=== PATIENT | male | born 1995 | race Caucasian/White ===

== ENCOUNTER → 2017-09-21 | Outpatient (CLI) | payer OTHER ==
[~2017-09-21] MED LIST: CHOL10002 PO; GABA300 PO; GAVILAX17 GM PO; HYDHCL25 PO; LEVO750 PO; METO10 PO; ONDA4ODT MM; PANT40 PO; SERT25; SERT25 PO; SUMA25 PO; Tylenol325 MG PO; Zofran4 MG PO
[2017-09-21 15:21] LABS: BASOPHILS ABSOLUTE AUTO 0.06 K/mm3 (0.00-0.23); BASOPHILS PERCENT AUTO 1 % (0-2); EOSINOPHILS ABSOLUTE AUTO 0.42 K/mm3 (0.00-0.68); EOSINOPHILS PERCENT AUTO 5 % (0-6); Hematocrit 42.7 % (37.0-53.0); Hemoglobin 14.6 g/dL (13.5-17.5); IMMATURE GRAN ABSOLUTE AUTO 0.04 K/mm3 (0.00-0.10); IMMATURE GRAN PERCENT AUTO 1 % (0-1); LYMPHOCYTES ABSOLUTE AUTO 1.32 K/mm3 (0.84-5.20); LYMPHOCYTES PERCENT AUTO 17 % (21-46); MONOCYTES ABSOLUTE AUTO 0.78 K/mm3 (0.16-1.47); MONOCYTES PERCENT AUTO 10 % (4-13); Mean Corpuscular HGB Conc 34.2 g/dL (31.5-36.5); Mean Corpuscular Volume 85 fL (80-100); Mean Platelet Volume 9.9 fL (9.1-12.4); NEUTROPHILS PERCENT AUTO 66 % (41-73); Platelet Count 405 K/mm3 (150-400); RDW Coefficient Variation 13.1 % (11.7-14.2); RDW Standard Deviation 39.8 fL (35.1-46.3); Red Blood Cell Count 5.04 M/mm3 (4.30-5.90); White Blood Cell Count 7.72 K/mm3 (4.00-11.30)
== END | disposition home or self-care (01) ==
LOC: LAB EV 15:18
PROVIDERS: Family Medicine
DX: K29.70 Gastritis, unspecified, without bleeding (principal)
CPT/HCPCS: 85025

== ENCOUNTER → 2017-12-20 | Outpatient (CLI) | payer OTHER ==
[~2017-12-20] MED LIST changes: -CHOL10002 PO; +GABA300; -GABA300 PO; -GAVILAX17 GM PO; -LEVO750 PO; -METO10 PO; -ONDA4ODT MM; -PANT40 PO; -SERT25 PO; -SUMA25 PO; -Tylenol325 MG PO
[2017-12-20 12:16] LABS: BASOPHILS ABSOLUTE AUTO 0.08 K/mm3 (0.00-0.23); BASOPHILS PERCENT AUTO 1 % (0-2); EOSINOPHILS ABSOLUTE AUTO 0.38 K/mm3 (0.00-0.68); EOSINOPHILS PERCENT AUTO 5 % (0-6); Hematocrit 40.9 % (37.0-53.0); Hemoglobin 14.3 g/dL (13.5-17.5); IMMATURE GRAN ABSOLUTE AUTO 0.02 K/mm3 (0.00-0.10); IMMATURE GRAN PERCENT AUTO 0 % (0-1); LYMPHOCYTES ABSOLUTE AUTO 1.29 K/mm3 (0.84-5.20); LYMPHOCYTES PERCENT AUTO 17 % (21-46); MONOCYTES ABSOLUTE AUTO 0.67 K/mm3 (0.16-1.47); MONOCYTES PERCENT AUTO 9 % (4-13); Mean Corpuscular HGB 28.9 pg (26.0-34.0); Mean Corpuscular Volume 83 fL (80-100); Mean Platelet Volume 10.2 fL (9.1-12.4); NEUTROPHILS ABSOLUTE AUTO 5.07 K/mm3 (1.96-9.15); NEUTROPHILS PERCENT AUTO 67 % (41-73); Platelet Count 434 K/mm3 (150-400); RDW Coefficient Variation 13.4 % (11.7-14.2); RDW Standard Deviation 39.7 fL (35.1-46.3); Red Blood Cell Count 4.95 M/mm3 (4.30-5.90); White Blood Cell Count 7.51 K/mm3 (4.00-11.30)
[2017-12-20 12:36] LABS: Alanine Aminotransfer (ALT/SGP 65 U/L (12-78); Albumin, Blood 3.7 g/dL (3.4-5.0); Albumin/Globulin Ratio 0.7 (0.8-1.8); Alk Phos 47 U/L (40-126); Anion Gap 11 mmol/L (6-16); Aspartate Aminotrans (AST/SGOT 46 U/L (12-37); Bilirubin, Total 1.3 mg/dL (0.1-1.0); Blood Urea Nitrogen 18 mg/dL (8-24); Bun/Creatinine Ratio 13.6 (12.0-20.0); CO2, Blood 26 mmol/L (21-32); Calcium, Blood 11.2 mg/dL (8.5-10.1); Chloride, Blood 100 mmol/L (98-108); Creatinine, Blood 1.32 mg/dL (0.60-1.20); Globulin, Blood 5.4 g/dL (2.2-4.0); Glomerular Filtration Rate >60 (60-); Glucose, Blood 93 mg/dL (70-99); Potassium, Blood 4.6 mmol/L (3.5-5.5); Sodium, Blood 137 mmol/L (136-145); Total Protein, Blood 9.1 g/dL (6.4-8.2)
== END | disposition home or self-care (01) ==
LOC: LAB EV 12:12 → LAB SHORT 12:12
PROVIDERS: Family Medicine
DX: K29.70 Gastritis, unspecified, without bleeding (principal)
CPT/HCPCS: 80053; 85025

== ENCOUNTER 2018-04-15 11:16 | Inpatient (IN) | payer OTHER ==
[~2018-04-15] VITALS: Ht 182.9 cm; Wt 109.1 kg
[~2018-04-15 11:16] MED LIST changes: -GABA300; +GABA300 PO
[2018-04-15 12:31] LABS: BASOPHILS ABSOLUTE AUTO 0.13 K/mm3 (0.00-0.23); BASOPHILS PERCENT AUTO 1 % (0-2); EOSINOPHILS ABSOLUTE AUTO 1.01 K/mm3 (0.00-0.68); EOSINOPHILS PERCENT AUTO 8 % (0-6); Hematocrit 41.1 % (37.0-53.0); IMMATURE GRAN ABSOLUTE AUTO 0.04 K/mm3 (0.00-0.10); IMMATURE GRAN PERCENT AUTO 0 % (0-1); LYMPHOCYTES ABSOLUTE AUTO 2.06 K/mm3 (0.84-5.20); LYMPHOCYTES PERCENT AUTO 15 % (21-46); MONOCYTES ABSOLUTE AUTO 1.32 K/mm3 (0.16-1.47); MONOCYTES PERCENT AUTO 10 % (4-13); Mean Corpuscular HGB 29.1 pg (26.0-34.0); Mean Corpuscular HGB Conc 34.1 g/dL (31.5-36.5); Mean Corpuscular Volume 85 fL (80-100); Mean Platelet Volume 10.3 fL (9.1-12.4); NEUTROPHILS PERCENT AUTO 66 % (41-73); Platelet Count 426 K/mm3 (150-400); RDW Coefficient Variation 13.1 % (11.7-14.2); RDW Standard Deviation 40.7 fL (35.1-46.3); Red Blood Cell Count 4.81 M/mm3 (4.30-5.90); White Blood Cell Count 13.36 K/mm3 (4.00-11.30)
[2018-04-15 12:44] LABS: Alanine Aminotransfer (ALT/SGP 40 U/L (12-78); Albumin, Blood 3.6 g/dL (3.4-5.0); Albumin/Globulin Ratio 0.7 (0.8-1.8); Alk Phos 41 U/L (50-136); Anion Gap 9 mmol/L (6-16); Aspartate Aminotrans (AST/SGOT 26 U/L (12-37); Bilirubin, Total 1.3 mg/dL (0.1-1.0); Blood Urea Nitrogen 17 mg/dL (8-24); Bun/Creatinine Ratio 12.1 (12.0-20.0); CO2, Blood 25 mmol/L (21-32); Calcium, Blood 14.7 mg/dL (8.5-10.1); Chloride, Blood 102 mmol/L (98-108); Globulin, Blood 5.5 g/dL (2.2-4.0); Glomerular Filtration Rate >60 (60-); Glucose, Blood 82 mg/dL (70-99); Potassium, Blood 3.4 mmol/L (3.5-5.5); Sodium, Blood 136 mmol/L (136-145); Total Protein, Blood 9.1 g/dL (6.4-8.2)
[2018-04-15 14:51] LABS: Magnesium, Blood 1.3 mg/dL (1.6-2.4); Phosphorus, Blood 1.9 mg/dL (2.5-4.9)
[2018-04-16 04:49] LABS: BASOPHILS ABSOLUTE AUTO 0.13 K/mm3 (0.00-0.23); BASOPHILS PERCENT AUTO 1 % (0-2); EOSINOPHILS ABSOLUTE AUTO 1.12 K/mm3 (0.00-0.68); EOSINOPHILS PERCENT AUTO 9 % (0-6); Hematocrit 36.3 % (37.0-53.0); Hemoglobin 12.5 g/dL (13.5-17.5); IMMATURE GRAN ABSOLUTE AUTO 0.04 K/mm3 (0.00-0.10); IMMATURE GRAN PERCENT AUTO 0 % (0-1); LYMPHOCYTES PERCENT AUTO 16 % (21-46); MONOCYTES ABSOLUTE AUTO 1.27 K/mm3 (0.16-1.47); MONOCYTES PERCENT AUTO 11 % (4-13); Mean Corpuscular HGB 29.3 pg (26.0-34.0); Mean Corpuscular HGB Conc 34.4 g/dL (31.5-36.5); Mean Corpuscular Volume 85 fL (80-100); Mean Platelet Volume 10.7 fL (9.1-12.4); NEUTROPHILS ABSOLUTE AUTO 7.66 K/mm3 (1.96-9.15); NEUTROPHILS PERCENT AUTO 63 % (41-73); Platelet Count 392 K/mm3 (150-400); RDW Coefficient Variation 13.3 % (11.7-14.2); RDW Standard Deviation 41.2 fL (35.1-46.3); Red Blood Cell Count 4.27 M/mm3 (4.30-5.90); White Blood Cell Count 12.12 K/mm3 (4.00-11.30)
[2018-04-16 05:07] LABS: Magnesium, Blood 1.5 mg/dL (1.6-2.4)
[2018-04-16 05:10] LABS: Anion Gap 8 mmol/L (6-16); Blood Urea Nitrogen 18 mg/dL (8-24); CO2, Blood 27 mmol/L (21-32); Calcium, Blood 13.3 mg/dL (8.5-10.1); Chloride, Blood 104 mmol/L (98-108); Creatinine, Blood 1.38 mg/dL (0.60-1.20); Glomerular Filtration Rate >60 (60-); Glucose, Blood 123 mg/dL (70-99); Phosphorus, Blood 3.9 mg/dL (2.5-4.9); Potassium, Blood 3.5 mmol/L (3.5-5.5); Sodium, Blood 139 mmol/L (136-145)
[2018-04-17 05:40] LABS: International Normalized Ratio 1.14; Prothrombin Time Results 11.7 Sec (9.7-11.5)
[2018-04-17 07:08] LABS: COMPLEMENT C3, SERUM 185 mg/dL (82-167); COMPLEMENT C4, SERUM 31 mg/dL (14-44)
[2018-04-17 08:05] LABS: BASOPHILS ABSOLUTE AUTO 0.08 K/mm3 (0.00-0.23); BASOPHILS PERCENT AUTO 1 % (0-2); EOSINOPHILS ABSOLUTE AUTO 0.59 K/mm3 (0.00-0.68); EOSINOPHILS PERCENT AUTO 5 % (0-6); Hematocrit 35.6 % (37.0-53.0); Hemoglobin 11.6 g/dL (13.5-17.5); IMMATURE GRAN ABSOLUTE AUTO 0.05 K/mm3 (0.00-0.10); IMMATURE GRAN PERCENT AUTO 0 % (0-1); LYMPHOCYTES ABSOLUTE AUTO 1.26 K/mm3 (0.84-5.20); LYMPHOCYTES PERCENT AUTO 10 % (21-46); MONOCYTES ABSOLUTE AUTO 0.55 K/mm3 (0.16-1.47); MONOCYTES PERCENT AUTO 5 % (4-13); Mean Corpuscular HGB 28.4 pg (26.0-34.0); Mean Corpuscular HGB Conc 32.6 g/dL (31.5-36.5); Mean Corpuscular Volume 87 fL (80-100); Mean Platelet Volume 11.2 fL (9.1-12.4); NEUTROPHILS ABSOLUTE AUTO 9.66 K/mm3 (1.96-9.15); NEUTROPHILS PERCENT AUTO 79 % (41-73); Platelet Count 333 K/mm3 (150-400); RDW Coefficient Variation 13.2 % (11.7-14.2); RDW Standard Deviation 41.6 fL (35.1-46.3); Red Blood Cell Count 4.09 M/mm3 (4.30-5.90); White Blood Cell Count 12.19 K/mm3 (4.00-11.30)
[2018-04-17 08:15] LABS: Albumin, Blood 2.8 g/dL (3.4-5.0); Anion Gap 8 mmol/L (6-16); Blood Urea Nitrogen 19 mg/dL (8-24); Bun/Creatinine Ratio 12.3 (12.0-20.0); CO2, Blood 26 mmol/L (21-32); Calcium, Blood 11.5 mg/dL (8.5-10.1); Chloride, Blood 102 mmol/L (98-108); Creatinine, Blood 1.54 mg/dL (0.60-1.20); Glomerular Filtration Rate >60 (60-); Glucose, Blood 91 mg/dL (70-99); Magnesium, Blood 1.2 mg/dL (1.6-2.4); Phosphorus, Blood 1.6 mg/dL (2.5-4.9); Potassium, Blood 3.9 mmol/L (3.5-5.5); Sodium, Blood 136 mmol/L (136-145)
[2018-04-17 12:33] LABS: Source, Urine Clean Catch
[2018-04-17 12:49] LABS: Bilirubin, Urine Neg (Neg); Blood, Urine Neg (Neg); Glucose Qualitative, Urine Neg (Neg); Ketones, Urine Neg (Neg); Leukocyte Esterase, Urine Neg (Neg); Nitrite, Urine Neg (Neg); Protein, Urine Neg (Neg); Urobilinogen, Urine NORM (Normal); pH, Urine 6.5 (5.0-8.0)
[2018-04-17 13:05] LABS: Appearance, Urine Clear (Clear); Color, Urine Pale Yellow (P-Yellow)
[2018-04-18 04:56] LABS: BASOPHILS ABSOLUTE AUTO 0.09 K/mm3 (0.00-0.23); BASOPHILS PERCENT AUTO 1 % (0-2); EOSINOPHILS ABSOLUTE AUTO 0.93 K/mm3 (0.00-0.68); EOSINOPHILS PERCENT AUTO 9 % (0-6); Hematocrit 36.2 % (37.0-53.0); IMMATURE GRAN ABSOLUTE AUTO 0.06 K/mm3 (0.00-0.10); IMMATURE GRAN PERCENT AUTO 1 % (0-1); LYMPHOCYTES ABSOLUTE AUTO 1.54 K/mm3 (0.84-5.20); LYMPHOCYTES PERCENT AUTO 15 % (21-46); MONOCYTES ABSOLUTE AUTO 0.71 K/mm3 (0.16-1.47); MONOCYTES PERCENT AUTO 7 % (4-13); Mean Corpuscular HGB 28.7 pg (26.0-34.0); Mean Corpuscular HGB Conc 33.1 g/dL (31.5-36.5); Mean Corpuscular Volume 87 fL (80-100); Mean Platelet Volume 10.5 fL (9.1-12.4); NEUTROPHILS ABSOLUTE AUTO 7.06 K/mm3 (1.96-9.15); NEUTROPHILS PERCENT AUTO 68 % (41-73); Platelet Count 290 K/mm3 (150-400); RDW Standard Deviation 41.1 fL (35.1-46.3); Red Blood Cell Count 4.18 M/mm3 (4.30-5.90); White Blood Cell Count 10.39 K/mm3 (4.00-11.30)
[2018-04-18 05:14] LABS: Magnesium, Blood 1.4 mg/dL (1.6-2.4)
[2018-04-18 05:34] LABS: Albumin, Blood 2.6 g/dL (3.4-5.0); Anion Gap 8 mmol/L (6-16); Blood Urea Nitrogen 19 mg/dL (8-24); Bun/Creatinine Ratio 13.2 (12.0-20.0); CO2, Blood 26 mmol/L (21-32); Chloride, Blood 102 mmol/L (98-108); Creatinine, Blood 1.44 mg/dL (0.60-1.20); Glomerular Filtration Rate >60 (60-); Glucose, Blood 76 mg/dL (70-99); Phosphorus, Blood 2.2 mg/dL (2.5-4.9); Potassium, Blood 3.8 mmol/L (3.5-5.5); Sodium, Blood 136 mmol/L (136-145)
[2018-04-18 05:51] LABS: Calcium, Blood 9.4 mg/dL (8.5-10.1)
[2018-04-18 05:52] LABS: HIV SCREEN 4TH GENERATION WRFX Non Reactive (Non Reactive)
[2018-04-19 06:20] LABS: Hematocrit 33.7 % (37.0-53.0); Hemoglobin 11.6 g/dL (13.5-17.5); Mean Corpuscular HGB 28.7 pg (26.0-34.0); Mean Corpuscular HGB Conc 34.4 g/dL (31.5-36.5); Mean Corpuscular Volume 83 fL (80-100); Mean Platelet Volume 10.4 fL (9.1-12.4); Platelet Count 314 K/mm3 (150-400); RDW Coefficient Variation 13.1 % (11.7-14.2); RDW Standard Deviation 39.8 fL (35.1-46.3); Red Blood Cell Count 4.04 M/mm3 (4.30-5.90); White Blood Cell Count 11.24 K/mm3 (4.00-11.30)
[2018-04-19 06:47] LABS: Albumin, Blood 2.7 g/dL (3.4-5.0); Anion Gap 7 mmol/L (6-16); Blood Urea Nitrogen 19 mg/dL (8-24); Bun/Creatinine Ratio 14.7 (12.0-20.0); CO2, Blood 25 mmol/L (21-32); Chloride, Blood 103 mmol/L (98-108); Creatinine, Blood 1.29 mg/dL (0.60-1.20); Glomerular Filtration Rate >60 (60-); Glucose, Blood 84 mg/dL (70-99); Magnesium, Blood 1.3 mg/dL (1.6-2.4); Phosphorus, Blood 1.6 mg/dL (2.5-4.9); Potassium, Blood 3.9 mmol/L (3.5-5.5); Sodium, Blood 135 mmol/L (136-145)
[2018-04-19 09:14] LABS: ANTI-DSDNA ANTIBODIES <1 IU/mL (0-9); RNP ANTIBODIES 0.2 AI (0.0-0.9); SJOGREN'S ANTI-SS-A <0.2 AI (0.0-0.9); SJOGREN'S ANTI-SS-B <0.2 AI (0.0-0.9); SMITH ANTIBODIES <0.2 AI (0.0-0.9)
[2018-04-19] MEDS ORDERED: LEVO750 PO (13:12)
[2018-04-19] MEDS ORDERED: Tylenol325 MG PO (13:12)
[2018-04-19] MEDS ORDERED: METO10 PO (13:13)
[2018-04-19] MEDS ORDERED: PANT40 PO (13:14)
[2018-04-19] MEDS ORDERED: GAVILAX17 GM PO (13:15)
[2018-04-19] MEDS ORDERED: SUMA25 PO (13:16)
[2018-04-19] MEDS ORDERED: ONDA4ODT MM (13:19)
[2018-04-19] MEDS ORDERED: CHOL10002 PO (13:19)
== END 2018-04-19 14:20 | disposition home or self-care (01) | DRG 815 ==
LOC: ER 11:16 → MEDS 16:41 → ER 16:41 → MEDS 18:39 → ER 04-16 16:00 → MEDS 04-16 16:05 → ER 04-16 16:05 → MEDS 04-16 16:10
PROVIDERS: Emergency Medicine; Internal Medicine; Internal Medicine Hematology & Oncology
PROC: 07DH3ZX Extraction of Right Inguinal Lymphatic, Percutaneous Approach, Diagnostic (ICD-10-PCS; principal; 2018-04-17)
DX: I88.1 Chronic lymphadenitis, except mesenteric (principal); N17.9 Acute kidney failure, unspecified; N39.0 Urinary tract infection, site not specified; F17.200 Nicotine dependence, unspecified, uncomplicated; E83.52 Hypercalcemia; E87.6 Hypokalemia; E83.42 Hypomagnesemia; E83.39 Other disorders of phosphorus metabolism; K21.0 Gastro-esophageal reflux disease with esophagitis; F90.9 Attention-deficit hyperactivity disorder, unspecified type; G43.909 Migraine, unspecified, not intractable, without status migrainosus; G40.909 Epilepsy, unspecified, not intractable, without status epilepticus; E66.9 Obesity, unspecified; Z68.32 Body mass index [BMI] 32.0-32.9, adult; F43.10 Post-traumatic stress disorder, unspecified; G47.00 Insomnia, unspecified; E86.0 Dehydration; K25.9 Gastric ulcer, unspecified as acute or chronic, without hemorrhage or perforation
CPT/HCPCS: 36415; 38505; 71046; 71250; 74176; 76942; 80048; 80053; 80069; 81003; 82306; 82330; 83690; 83735; 83970; 84100; 84145; 84439; 85025; 85027; 85610; 85730; 86160; 86225; 86235; 87389; 88305; 88312; 90686; 93005; 93010; 96361; 96374; 96375; 99285-25; C9113; J1940; J1956; J2405; J2765; J3475; J3480; J3489; J7030; J7050; J7060

== ENCOUNTER 2018-04-25 06:34 | Day surgery (SDC) | payer OTHER ==
[~2018-04-25] VITALS: Ht 182.9 cm; Wt 103.9 kg
[~2018-04-25 06:34] MED LIST changes: +CHOL10002 PO; +GAVILAX17 GM PO; +LEVO750 PO; +METO10 PO; +ONDA4ODT MM; +PANT40 PO; +SUMA25 PO; +Tylenol325 MG PO
[2018-04-25 11:17] LABS: Performing Lab SYMBIODX; Test Name FLOW CYTOMETRY
== END 2018-04-25 22:35 | disposition home or self-care (01) ==
LOC: ORSCMMR 06:34 → ORD 09:00 → ORSCMMR 09:30
PROVIDERS: Surgery
PROC: 07BJ0ZX Excision of Left Inguinal Lymphatic, Open Approach, Diagnostic (ICD-10-PCS; principal; 2018-04-25 08:00)
DX: I88.8 Other nonspecific lymphadenitis (principal); G40.909 Epilepsy, unspecified, not intractable, without status epilepticus; F43.10 Post-traumatic stress disorder, unspecified; Z79.899 Other long term (current) drug therapy
CPT/HCPCS: 88305; 88312; J0690; J2250; J3010; J7120

== ENCOUNTER 2018-10-18 22:17 | Emergency (ER) | payer OTHER ==
[~2018-10-18] VITALS: Ht 182.9 cm; Wt 115.7 kg
[~2018-10-18 22:17] MED LIST changes: +SERT25 PO
[2018-10-18] MEDS ORDERED: PRED20 PO (23:44)
== END 2018-10-18 23:40 | disposition home or self-care (01) ==
LOC: ER 22:17
DX: S91.114A Laceration without foreign body of right lesser toe(s) without damage to nail, initial encounter (principal); Z79.899 Other long term (current) drug therapy; W25.XXXA Contact with sharp glass, initial encounter
CPT/HCPCS: 12001; 90471; 90714; 99282-25

== ENCOUNTER 2019-05-15 19:47 | Emergency (ER) | payer OTHER ==
[~2019-05-15] VITALS: Ht 185.4 cm; Wt 104.3 kg
[~2019-05-15 19:47] MED LIST changes: +PRED20 PO
[2019-05-15 20:34] LABS: BASOPHILS ABSOLUTE AUTO 0.07 K/mm3 (0.00-0.23); BASOPHILS PERCENT AUTO 1 % (0-2); EOSINOPHILS ABSOLUTE AUTO 0.22 K/mm3 (0.00-0.68); EOSINOPHILS PERCENT AUTO 2 % (0-6); Hematocrit 39.6 % (37.0-53.0); Hemoglobin 13.4 g/dL (13.5-17.5); IMMATURE GRAN ABSOLUTE AUTO 0.03 K/mm3 (0.00-0.10); IMMATURE GRAN PERCENT AUTO 0 % (0-1); LYMPHOCYTES ABSOLUTE AUTO 1.48 K/mm3 (0.84-5.20); LYMPHOCYTES PERCENT AUTO 14 % (21-46); MONOCYTES ABSOLUTE AUTO 0.82 K/mm3 (0.16-1.47); MONOCYTES PERCENT AUTO 8 % (4-13); Mean Corpuscular HGB 29.8 pg (26.0-34.0); Mean Corpuscular HGB Conc 33.8 g/dL (31.5-36.5); Mean Corpuscular Volume 88 fL (80-100); Mean Platelet Volume 10.6 fL (9.1-12.4); NEUTROPHILS ABSOLUTE AUTO 7.92 K/mm3 (1.96-9.15); NEUTROPHILS PERCENT AUTO 75 % (41-73); Platelet Count 395 K/mm3 (150-400); RDW Coefficient Variation 13.1 % (11.7-14.2); RDW Standard Deviation 42.3 fL (35.1-46.3); Red Blood Cell Count 4.49 M/mm3 (4.30-5.90); White Blood Cell Count 10.54 K/mm3 (4.00-11.30)
[2019-05-15] MEDS ORDERED: ONDA4ODT SL (21:00)
[2019-05-15] MEDS ORDERED: AMIT25 PO (21:00)
[2019-05-15] MEDS ORDERED: METO10 PO (21:01)
[2019-05-15 21:17] LABS: Alanine Aminotransfer (ALT/SGP 39 U/L (12-78); Albumin, Blood 3.5 g/dL (3.4-5.0); Albumin/Globulin Ratio 0.8 (0.8-1.8); Alk Phos 34 U/L (50-136); Anion Gap 9 mmol/L (6-16); Aspartate Aminotrans (AST/SGOT 32 U/L (12-37); Bilirubin, Total 1.1 mg/dL (0.1-1.0); Blood Urea Nitrogen 11 mg/dL (8-24); Bun/Creatinine Ratio 12.6 (12.0-20.0); CO2, Blood 26 mmol/L (21-32); Calcium, Blood 9.8 mg/dL (8.5-10.1); Chloride, Blood 105 mmol/L (98-108); Creatinine, Blood 0.87 mg/dL (0.60-1.20); Globulin, Blood 4.3 g/dL (2.2-4.0); Glomerular Filtration Rate >60 (60-); Glucose, Blood 92 mg/dL (70-99); Magnesium, Blood 1.2 mg/dL (1.6-2.4); Phosphorus, Blood 3.2 mg/dL (2.5-4.9); Potassium, Blood 3.7 mmol/L (3.5-5.5); Sodium, Blood 140 mmol/L (136-145); Total Protein, Blood 7.8 g/dL (6.4-8.2)
[2019-05-15 23:06] LABS: International Normalized Ratio 1.02; Prothrombin Time Results 10.8 Sec (9.7-11.5)
== END 2019-05-15 23:49 | disposition home or self-care (01) ==
LOC: ER 19:47
PROVIDERS: Emergency Medicine; Physician Assistant
DX: R11.2 Nausea with vomiting, unspecified (principal); R51 Headache; G89.29 Other chronic pain; D86.9 Sarcoidosis, unspecified; Z91.14 Patient's other noncompliance with medication regimen; Z79.899 Other long term (current) drug therapy
CPT/HCPCS: 36415; 74177; 80053; 82272; 82330; 83735; 84100; 85025; 85610; 85730; 96361; 96374-59; 96375; 99285-25; J1100; J1200; J2405; J2765; J7030; Q9967

== ENCOUNTER → 2019-06-13 | Outpatient (CLI) | payer OTHER ==
[~2019-06-13] MED LIST changes: +AMIT25 PO; +BUDE6HFA INH; +INCRUSE ELLI62.5 MCG INH; +ONDA4ODT SL; +PROAIR DIGIHAL90 MCG INH
== END ==
LOC: PLD 07:27 → LAB SHORT 07:27
DX: L30.8 Other specified dermatitis (principal)
CPT/HCPCS: 88312

== ENCOUNTER 2019-09-28 10:56 | Emergency (ER) | payer OTHER ==
[~2019-09-28] VITALS: Ht 182.9 cm; Wt 108.9 kg
[2019-09-28 11:45] LABS: Influenza A Negative (NEGATIVE); Influenza B Negative (NEGATIVE)
[2019-09-28 12:07] LABS: BASOPHILS ABSOLUTE AUTO 0.07 K/mm3 (0.00-0.23); BASOPHILS PERCENT AUTO 1 % (0-2); EOSINOPHILS ABSOLUTE AUTO 0.37 K/mm3 (0.00-0.68); EOSINOPHILS PERCENT AUTO 4 % (0-6); Hematocrit 40.5 % (37.0-53.0); Hemoglobin 13.6 g/dL (13.5-17.5); IMMATURE GRAN ABSOLUTE AUTO 0.03 K/mm3 (0.00-0.10); IMMATURE GRAN PERCENT AUTO 0 % (0-1); LYMPHOCYTES ABSOLUTE AUTO 1.31 K/mm3 (0.84-5.20); LYMPHOCYTES PERCENT AUTO 14 % (21-46); MONOCYTES ABSOLUTE AUTO 0.98 K/mm3 (0.16-1.47); MONOCYTES PERCENT AUTO 11 % (4-13); Mean Corpuscular HGB 29.8 pg (26.0-34.0); Mean Corpuscular HGB Conc 33.6 g/dL (31.5-36.5); Mean Corpuscular Volume 89 fL (80-100); Mean Platelet Volume 10.2 fL (9.1-12.4); NEUTROPHILS ABSOLUTE AUTO 6.32 K/mm3 (1.96-9.15); NEUTROPHILS PERCENT AUTO 70 % (41-73); Platelet Count 433 K/mm3 (150-400); RDW Coefficient Variation 13.8 % (11.7-14.2); RDW Standard Deviation 44.9 fL (35.1-46.3); Red Blood Cell Count 4.56 M/mm3 (4.30-5.90); White Blood Cell Count 9.08 K/mm3 (4.00-11.30)
[2019-09-28 12:18] LABS: Alanine Aminotransfer (ALT/SGP 47 U/L (12-78); Albumin, Blood 3.9 g/dL (3.4-5.0); Albumin/Globulin Ratio 0.9 (0.8-1.8); Alk Phos 33 U/L (50-136); Anion Gap 6 mmol/L (6-16); Aspartate Aminotrans (AST/SGOT 33 U/L (12-37); Bilirubin, Total 1.4 mg/dL (0.1-1.0); Blood Urea Nitrogen 13 mg/dL (8-24); Bun/Creatinine Ratio 13.9 (12.0-20.0); CO2, Blood 27 mmol/L (21-32); Calcium, Blood 9.4 mg/dL (8.5-10.1); Chloride, Blood 105 mmol/L (98-108); Creatinine, Blood 0.94 mg/dL (0.60-1.20); Globulin, Blood 4.4 g/dL (2.2-4.0); Glomerular Filtration Rate >60 (60-); Glucose, Blood 87 mg/dL (70-99); Potassium, Blood 4.4 mmol/L (3.5-5.5); Sodium, Blood 138 mmol/L (136-145); Total Protein, Blood 8.3 g/dL (6.4-8.2)
[2019-09-28] MEDS ORDERED: PHENERGAN25 MG PR (13:31)
[2019-09-28] MEDS ORDERED: Zithromax250 MG PO (13:31)
[2019-09-28] MEDS ORDERED: Augmentin 875-1 EACH PO (13:31)
== END 2019-09-28 14:07 | disposition home or self-care (01) ==
LOC: ER 10:56
PROVIDERS: Physician Assistant
DX: J18.9 Pneumonia, unspecified organism (principal); D86.9 Sarcoidosis, unspecified; F90.9 Attention-deficit hyperactivity disorder, unspecified type; K21.9 Gastro-esophageal reflux disease without esophagitis; G40.909 Epilepsy, unspecified, not intractable, without status epilepticus
CPT/HCPCS: 36415; 71045; 80053; 85025; 87804; 93005; 93010; 96361; 96374; 99284-25; J2550; J7030

== ENCOUNTER 2020-01-18 10:53 | Day surgery (SDC) | payer OTHER ==
[~2020-01-18] VITALS: Ht 182.9 cm; Wt 104.7 kg
[~2020-01-18 10:53] MED LIST changes: +Augmentin 875-1 EACH PO; +PHENERGAN25 MG PR; +Zithromax250 MG PO
--- NOTE | 2020-01-18 14:41 | NUR ---
01/18/20 1441 Destinee Keys PT.'S FAMILY SAID HE WAS PRETTY WOBBLY WHILE HE WAS GETTING DRESSED. PT. VERBALIZED HE WAS DOING OK. ASKED PT. IF HE WAS OK TO GO HOME, PT. SAID HE WAS OK TO GO HOME JUST WANTED A WC OUT. PT. TAKEN OUT BY WC WITH SBA INTO CAR.
== END 2020-01-18 14:35 | disposition home or self-care (01) ==
LOC: ORSCSDS 10:53
PROVIDERS: Internal Medicine Gastroenterology
PROC: 0DB58ZX Excision of Esophagus, Via Natural or Artificial Opening Endoscopic, Diagnostic (ICD-10-PCS; principal; 2020-01-18 12:15)
PROC: 0DB68ZX Excision of Stomach, Via Natural or Artificial Opening Endoscopic, Diagnostic (ICD-10-PCS; principal; 2020-01-18 12:15)
PROC: 0DB98ZX Excision of Duodenum, Via Natural or Artificial Opening Endoscopic, Diagnostic (ICD-10-PCS; principal; 2020-01-18 12:15)
PROC: 0DBE8ZX Excision of Large Intestine, Via Natural or Artificial Opening Endoscopic, Diagnostic (ICD-10-PCS; principal; 2020-01-18 12:15)
DX: R11.2 Nausea with vomiting, unspecified (principal); K21.9 Gastro-esophageal reflux disease without esophagitis; K22.10 Ulcer of esophagus without bleeding; K29.80 Duodenitis without bleeding; K44.9 Diaphragmatic hernia without obstruction or gangrene; D86.89 Sarcoidosis of other sites; R10.9 Unspecified abdominal pain; F43.10 Post-traumatic stress disorder, unspecified; Z79.899 Other long term (current) drug therapy; Z87.891 Personal history of nicotine dependence; K64.8 Other hemorrhoids
CPT/HCPCS: 88305; 88342; J2001; J2704; J7120

== ENCOUNTER 2020-01-24 19:38 | Inpatient (IN) | payer OTHER ==
[~2020-01-24] VITALS: Ht 182.9 cm; Wt 105.5 kg
[2020-01-24 20:37] LABS: Albumin, Blood 3.3 g/dL (3.4-5.0); Bun/Creatinine Ratio 10.6 (12.0-20.0); Calcium, Blood 13.5 mg/dL (8.5-10.1); Creatinine, Blood 1.79 mg/dL (0.60-1.20); Globulin, Blood 4.8 g/dL (2.2-4.0); Potassium, Blood 3.1 mmol/L (3.5-5.5); Total Protein, Blood 8.1 g/dL (6.4-8.2)
[2020-01-24 20:38] LABS: Albumin/Globulin Ratio 0.7 (0.8-1.8); Bilirubin, Total 1.5 mg/dL (0.1-1.0)
[2020-01-24 20:42] LABS: BASOPHILS PERCENT AUTO 1 % (0-2); EOSINOPHILS ABSOLUTE AUTO 0.63 K/mm3 (0.00-0.68); EOSINOPHILS PERCENT AUTO 6 % (0-6); Hematocrit 40.3 % (37.0-53.0); Hemoglobin 13.5 g/dL (13.5-17.5); IMMATURE GRAN ABSOLUTE AUTO 0.03 K/mm3 (0.00-0.10); IMMATURE GRAN PERCENT AUTO 0 % (0-1); LYMPHOCYTES ABSOLUTE AUTO 2.25 K/mm3 (0.84-5.20); LYMPHOCYTES PERCENT AUTO 22 % (21-46); MONOCYTES ABSOLUTE AUTO 1.11 K/mm3 (0.16-1.47); MONOCYTES PERCENT AUTO 11 % (4-13); Mean Corpuscular HGB 28.5 pg (26.0-34.0); Mean Corpuscular HGB Conc 33.5 g/dL (31.5-36.5); Mean Corpuscular Volume 85 fL (80-100); Mean Platelet Volume 10.8 fL (9.1-12.4); NEUTROPHILS ABSOLUTE AUTO 6.01 K/mm3 (1.96-9.15); NEUTROPHILS PERCENT AUTO 59 % (41-73); Platelet Count 494 K/mm3 (150-400); RDW Coefficient Variation 14.2 % (11.7-14.2); RDW Standard Deviation 44.3 fL (35.1-46.3); Red Blood Cell Count 4.74 M/mm3 (4.30-5.90); White Blood Cell Count 10.13 K/mm3 (4.00-11.30)
[2020-01-24] MEDS ORDERED: OMEPRAZOLE MAGN20 M1 PO (21:06)
[2020-01-24] MEDS ORDERED: GABA300 PO (21:06)
[2020-01-24] MEDS ORDERED: Methotrexate2.5 MG PO (21:14)
[2020-01-24] MEDS ORDERED: FOLI1 PO (21:14)
[2020-01-24] MEDS ORDERED: FLUTICASONE-SA1 EA12 INH (21:15)
[2020-01-24] MEDS ORDERED: PRED20 PO (21:15)
--- NOTE | 2020-01-24 23:18 | NUR ---
PT ADMITTED TO ROOM 356 VIA WHEELCHAIR FROM ER; PT STOOD FOR WEIGHT AT BEDSIDE; PT ALERT AND ORIENTED X 4; REPORT RECEIVED FROM ÁNGEL MUSA, ER NURSE; PT IS FULL CODE STATUS.
--- NOTE | 2020-01-25 04:30 | NUR ---
SHIFT SUMMARY: 24 Y/O MALE RESTED COMFORTABLY ALL SHIFT; DENIES PAIN OR NAUSEA; ALERT AND ORIENTED X 4; UP PER SELF TO BATHROOM WITHOUT ISSUE; HAPPY AND COOPERATIVE; BED LOW POSITION WITH CALL LIGHT AT SIDE.
[2020-01-25 04:44] LABS: Magnesium, Blood 2.4 mg/dL (1.6-2.4)
[2020-01-25 04:47] LABS: Bun/Creatinine Ratio 10.9 (12.0-20.0); Calcium, Blood 14.1 mg/dL (8.5-10.1); Creatinine, Blood 1.83 mg/dL (0.60-1.20); Phosphorus, Blood 2.4 mg/dL (2.5-4.9); Potassium, Blood 3.5 mmol/L (3.5-5.5)
[2020-01-25 10:34] LABS: Bun/Creatinine Ratio 12.4 (12.0-20.0); Creatinine, Blood 1.78 mg/dL (0.60-1.20); Potassium, Blood 3.8 mmol/L (3.5-5.5)
--- NOTE | 2020-01-25 11:04 | NUR ---
Spiritual care visit conducted. Patient explains about his disease and it's impact on his daily life. Patient tells me about the good support system that he has and about being inspired and filled by those connection. Patient talks about his current medical issues and the numbers the "doctors" are looking at for him. I listen empathically, normalize patient's experience and reinforce helpful attitudes and practices. I will continue to remain available to patient and family.
[2020-01-25 14:40] LABS: Bun/Creatinine Ratio 11.5 (12.0-20.0); Calcium, Blood 13.3 mg/dL (8.5-10.1); Creatinine, Blood 1.82 mg/dL (0.60-1.20); Potassium, Blood 3.4 mmol/L (3.5-5.5)
--- NOTE | 2020-01-25 17:06 | NUR ---
PT ALERT AND ORIENTED IN THE ROOM THIS SHIFT. PT INDEPENDENT IN THE ROOM. PT FAMILY AT BEDSIDE MUCH OF THIS SHIFT. PT SHOWERED INDEPENDENTLY THIS SHIFT. IV FLUID WITH POTASSIUM INFUSING THROUGHOUT THIS SHIFT. CALCIUM LEVEL IMPROVING THIS SHIFT. PT LAYING IN BED WITH NO FURTHER NEEDS AT THIS TIME.
--- NOTE | 2020-01-26 03:54 | NUR ---
SHIFT SUMMARY: 24 Y/O MALE RESTED COMFORTABLY ALL SHIFT; DENIES PAIN OR NAUSEA; UP PER SELF BATHROOM AND BACK; BED LOW POSITION WITH CALL LIGHT AT SIDE.
[2020-01-26 06:43] LABS: Albumin, Blood 2.9 g/dL (3.4-5.0); Anion Gap 8 mmol/L (6-16); Blood Urea Nitrogen 24 mg/dL (8-24); Bun/Creatinine Ratio 13.6 (12.0-20.0); CO2, Blood 24 mmol/L (21-32); Calcium, Blood 11.8 mg/dL (8.5-10.1); Chloride, Blood 110 mmol/L (98-108); Creatinine, Blood 1.77 mg/dL (0.60-1.20); Glomerular Filtration Rate 50 (60-); Glucose, Blood 154 mg/dL (70-99); Phosphorus, Blood 3.8 mg/dL (2.5-4.9); Potassium, Blood 3.7 mmol/L (3.5-5.5); Sodium, Blood 142 mmol/L (136-145)
[2020-01-26] MEDS ORDERED: ACET325 PO (11:42)
[2020-01-26] MEDS ORDERED: CALCITONIN-SAL3.7 ML (11:43)
[2020-01-26] MEDS ORDERED: FURO20 PO (11:44)
[2020-01-26] MEDS ORDERED: ONDA4ODT PO (11:45)
[2020-01-26] MEDS ORDERED: MAGNESIUM GLU27.5 M1 PO (11:45)
[2020-01-26] MEDS ORDERED: POTA10T PO (11:46)
--- NOTE | 2020-01-26 13:12 | NUR ---
PT DISCHARGED FROM THE UNIT. PT AMBULATED OFF THE FLOOR. PT MOTHER TO DRIVE HOME. IV REMOVED. DISCHARGE INSTRUCTIONS REVIEWED. MEDICATIONS FAXED TO PHARMACY.
== END 2020-01-26 12:28 | disposition home or self-care (01) | DRG 641 ==
LOC: ER 19:38 → MEDS 22:53
PROVIDERS: Emergency Medicine; Family Medicine; ADMIT Internal Medicine
DX: E83.52 Hypercalcemia (principal); N17.9 Acute kidney failure, unspecified; K22.10 Ulcer of esophagus without bleeding; E83.42 Hypomagnesemia; N18.3 Chronic kidney disease, stage 3 (moderate); E87.6 Hypokalemia; F10.10 Alcohol abuse, uncomplicated; G40.909 Epilepsy, unspecified, not intractable, without status epilepticus; D47.3 Essential (hemorrhagic) thrombocythemia; K21.9 Gastro-esophageal reflux disease without esophagitis; F90.9 Attention-deficit hyperactivity disorder, unspecified type; D86.0 Sarcoidosis of lung; Z66 Do not resuscitate; Z11.59 Encounter for screening for other viral diseases; E86.0 Dehydration
CPT/HCPCS: 36415; 71046; 80048; 80053; 80061; 80069; 82330; 83735; 84100; 84134; 84439; 84443; 84481; 85025; 85651; 86140; 93005; 93010; 94640; 94760; 96365; 96366; 96375; 99285-25; A9270; J0630; J1650; J1940; J2405; J2920; J3475; J3480; J7060; J7512; J8610

== ENCOUNTER 2020-03-24 20:12 | Inpatient (IN) | payer OTHER ==
[~2020-03-24] VITALS: Ht 182.9 cm; Wt 104.3 kg
[~2020-03-24 20:12] MED LIST changes: +ACET325 PO; +CALCITONIN-SAL3.7 ML; +FLUTICASONE-SA1 EA12 INH; +FOLI1 PO; +FURO20 PO; +MAGNESIUM GLU27.5 M1 PO; +Methotrexate2.5 MG PO; +OMEPRAZOLE MAGN20 M1 PO; +ONDA4ODT PO; +POTA10T PO
[2020-03-24 21:46] LABS: BASOPHILS ABSOLUTE AUTO 0.09 K/mm3 (0.00-0.23); BASOPHILS PERCENT AUTO 1 % (0-2); EOSINOPHILS ABSOLUTE AUTO 0.54 K/mm3 (0.00-0.68); EOSINOPHILS PERCENT AUTO 5 % (0-6); Hematocrit 38.7 % (37.0-53.0); Hemoglobin 12.8 g/dL (13.5-17.5); IMMATURE GRAN ABSOLUTE AUTO 0.03 K/mm3 (0.00-0.10); IMMATURE GRAN PERCENT AUTO 0 % (0-1); LYMPHOCYTES ABSOLUTE AUTO 2.38 K/mm3 (0.84-5.20); LYMPHOCYTES PERCENT AUTO 23 % (21-46); MONOCYTES ABSOLUTE AUTO 1.21 K/mm3 (0.16-1.47); MONOCYTES PERCENT AUTO 11 % (4-13); Mean Corpuscular HGB 28.2 pg (26.0-34.0); Mean Corpuscular HGB Conc 33.1 g/dL (31.5-36.5); Mean Corpuscular Volume 85 fL (80-100); Mean Platelet Volume 10.5 fL (9.1-12.4); NEUTROPHILS ABSOLUTE AUTO 6.35 K/mm3 (1.96-9.15); NEUTROPHILS PERCENT AUTO 60 % (41-73); Platelet Count 472 K/mm3 (150-400); RDW Coefficient Variation 13.5 % (11.7-14.2); Red Blood Cell Count 4.54 M/mm3 (4.30-5.90)
[2020-03-24 22:09] LABS: Magnesium, Blood 1.6 mg/dL (1.6-2.4)
[2020-03-24 22:11] LABS: Albumin, Blood 3.3 g/dL (3.4-5.0); Albumin/Globulin Ratio 0.6 (0.8-1.8); Bun/Creatinine Ratio 12.9 (12.0-20.0); Calcium, Blood 13.5 mg/dL (8.5-10.1); Creatinine, Blood 1.86 mg/dL (0.60-1.20); Globulin, Blood 5.7 g/dL (2.2-4.0); Phosphorus, Blood 3.2 mg/dL (2.5-4.9); Potassium, Blood 2.6 mmol/L (3.5-5.5)
--- NOTE | 2020-03-25 00:22 | NUR ---
transfer report from [facility] [employer] on 24 year old Male with Sarcoidosis who is being admitted with hypercalcemia & he had DR Huang consult done in ER. Await admission. Reportedly going to have dialysis started this admission.
[2020-03-25 05:24] LABS: BASOPHILS ABSOLUTE AUTO 0.03 K/mm3 (0.00-0.23); BASOPHILS PERCENT AUTO 0 % (0-2); EOSINOPHILS ABSOLUTE AUTO 0.02 K/mm3 (0.00-0.68); EOSINOPHILS PERCENT AUTO 0 % (0-6); Hematocrit 37.6 % (37.0-53.0); Hemoglobin 12.4 g/dL (13.5-17.5); IMMATURE GRAN ABSOLUTE AUTO 0.04 K/mm3 (0.00-0.10); IMMATURE GRAN PERCENT AUTO 1 % (0-1); LYMPHOCYTES ABSOLUTE AUTO 1.57 K/mm3 (0.84-5.20); LYMPHOCYTES PERCENT AUTO 19 % (21-46); MONOCYTES ABSOLUTE AUTO 0.12 K/mm3 (0.16-1.47); MONOCYTES PERCENT AUTO 1 % (4-13); Mean Corpuscular Volume 85 fL (80-100); Mean Platelet Volume 10.3 fL (9.1-12.4); NEUTROPHILS PERCENT AUTO 79 % (41-73); Platelet Count 445 K/mm3 (150-400); RDW Coefficient Variation 13.4 % (11.7-14.2); RDW Standard Deviation 41.9 fL (35.1-46.3); Red Blood Cell Count 4.43 M/mm3 (4.30-5.90); White Blood Cell Count 8.28 K/mm3 (4.00-11.30)
[2020-03-25 05:53] LABS: Albumin, Blood 2.9 g/dL (3.4-5.0); Albumin/Globulin Ratio 0.6 (0.8-1.8); Bun/Creatinine Ratio 13.8 (12.0-20.0); Calcium, Blood 12.2 mg/dL (8.5-10.1); Creatinine, Blood 1.74 mg/dL (0.60-1.20); Globulin, Blood 5.1 g/dL (2.2-4.0); Magnesium, Blood 1.4 mg/dL (1.6-2.4); Phosphorus, Blood 2.5 mg/dL (2.5-4.9); Potassium, Blood 3.3 mmol/L (3.5-5.5); Thyroid Stimulating Hormone 1.53 uIU/mL (0.360-4.800); Uric Acid, Blood 10.7 mg/dL (3.5-7.2)
--- NOTE | 2020-03-25 06:04 | NUR ---
PT resting quietly without complaints of acute distree. Called DR Huang 0600 to clarify labs ordered. PT voinding large ants of yellow urine. to come in to see PT clarify labs which were ordered on admission. Await clarification , have not started collection of 24 hour urine & one lab was ordered as CSF as specimen source.
--- NOTE | 2020-03-25 16:57 | NUR ---
SHIFT SUMMARY NO CHANGE TODAY. REPORTED NAUSEA X1, MEDICATED WITH ZOFRAN. NO COMPLAINTS OF PAIN. WILL HAVE CORTISOL TEST IN AM
--- NOTE | 2020-03-26 01:56 | NUR ---
24 year old MAle continues on 24 hour urine collection. Continues on IVF with potassium at 100 ml hour. He is quiet & cooperative. resting quietly without complaints with iv infusing. ON Miacalcin SQ injections bid for hypercalcemia. Mother at bedside in evening supportive. PT has test pending in AM cortisol level . RX obtained to administer testing. Will coordinate with lab for pre & post rx administration.
[2020-03-26 04:56] LABS: Hematocrit 34.8 % (37.0-53.0); Hemoglobin 11.3 g/dL (13.5-17.5)
[2020-03-26 05:11] LABS: Albumin, Blood 2.8 g/dL (3.4-5.0); Anion Gap 6 mmol/L (6-16); Blood Urea Nitrogen 32 mg/dL (8-24); Bun/Creatinine Ratio 19.5 (12.0-20.0); CO2, Blood 26 mmol/L (21-32); Calcium, Blood 11.5 mg/dL (8.5-10.1); Chloride, Blood 108 mmol/L (98-108); Creatinine, Blood 1.64 mg/dL (0.60-1.20); Glomerular Filtration Rate 55 (60-); Glucose, Blood 113 mg/dL (70-99); Magnesium, Blood 1.6 mg/dL (1.6-2.4); Phosphorus, Blood 3.1 mg/dL (2.5-4.9); Potassium, Blood 3.8 mmol/L (3.5-5.5); Sodium, Blood 140 mmol/L (136-145)
[2020-03-26 09:16] LABS: Protein, Urine Quantitative 21.2 mg/dL (0.0-11.9)
--- NOTE | 2020-03-26 15:29 | NUR ---
@ ONSET OF SHIFT PT ACTIVELY VOMITING, DISTRAUGHT. PRN IV ZOFAN GIVEN w POOR SUCCESS. DR DIETZ NOTIFIED, ORDER IV PHENERGAN 12.5 MG, IT HAS BEEN MORE SUCCESSFUL, EMESIS HAS STOPPED, PT STATE CONTINUING NAUSEA SOMEWHAT IMPROVED. HE APPEARS ILL T/O DAY HOWEVER HAS ASKED IF HE MAY BE D/C'D HOME. ORDER CT ABD & AWAITING RESULTS OF LAB TESTS THEN WILL REVIEW w PT & DISCUSS IF MEDICALLY STABLE.
[2020-03-26] MEDS ORDERED: OXYC5 PO (16:55)
[2020-03-26] MEDS ORDERED: PROM25 PO (16:56)
[2020-03-26] MEDS ORDERED: HYDCOR10 PO (16:57)
--- NOTE | 2020-03-26 18:04 | NUR ---
DISCHARGE DR DIETZ UP TO DISCUSS LABS, TEST RESULTS, MEDICATIONS. STATE PT MAY GO HOME TODAY, PLACE D/C ORDERS. IV HYDROCORTISONE GIVEN PRIOR TO D/C, IV SITE D/C INTACT. NEW SCRIPTS FAXED TO [facility]REQUEST. D/C INSTRUCT REVIEWED w EMPHASIS ON F/U APPTS. W/C ESCORT FROM HOSP PROVIDED. PT STATE SATISFACTION/APPRECIATION.
[2020-03-27 17:08] LABS: A/G RATIO 0.8 (0.7-1.7); ALBUMIN 3.1 g/dL (2.9-4.4); ALPHA-1-GLOBULIN 0.3 g/dL (0.0-0.4); ALPHA-2-GLOBULIN 0.9 g/dL (0.4-1.0); GAMMA GLOBULIN 2.1 g/dL (0.4-1.8); GLOBULIN, TOTAL 4.2 g/dL (2.2-3.9); IMMUNOGLOBULIN A, QN, SERUM 354 mg/dL (90-386); IMMUNOGLOBULIN G, QN, SERUM 2056 mg/dL (603-1613); IMMUNOGLOBULIN M, QN, SERUM 70 mg/dL (20-172); M-SPIKE Not Observed g/dL (Not Observed); PROTEIN, TOTAL, SERUM 7.3 g/dL (6.0-8.5)
[2020-03-28 13:09] LABS: ANA DIRECT Negative (Negative); ANTIMYELOPEROXIDASE (MPO) ABS <9.0 U/mL (0.0-9.0); ANTIPROTEINASE 3 (PR-3) ABS <3.5 U/mL (0.0-3.5); ATYPICAL PANCA <1:20 titer (Neg:<1:20); CYTOPLASMIC (C-ANCA) <1:20 titer (Neg:<1:20); PERINUCLEAR (P-ANCA) <1:20 titer (Neg:<1:20)
[2020-03-28] MEDS ORDERED: RENFLEXIS100 MG IV (13:47)
== END 2020-03-26 17:19 | disposition home or self-care (01) | DRG 682 ==
LOC: ER 20:12 → MEDS 20:13
PROVIDERS: Internal Medicine Nephrology; Physician Assistant; ADMIT Internal Medicine
DX: N17.9 Acute kidney failure, unspecified (principal); K85.90 Acute pancreatitis without necrosis or infection, unspecified; E87.1 Hypo-osmolality and hyponatremia; E27.49 Other adrenocortical insufficiency; E83.52 Hypercalcemia; E87.6 Hypokalemia; E86.9 Volume depletion, unspecified; D89.2 Hypergammaglobulinemia, unspecified; K21.9 Gastro-esophageal reflux disease without esophagitis; G40.909 Epilepsy, unspecified, not intractable, without status epilepticus; F43.10 Post-traumatic stress disorder, unspecified; M25.50 Pain in unspecified joint; N18.3 Chronic kidney disease, stage 3 (moderate); D86.0 Sarcoidosis of lung
CPT/HCPCS: 36415; 71046; 74176; 76770; 80053; 80069; 80400; 81050; 82533; 82550; 82784; 83690; 83735; 83970; 84100; 84156; 84165; 84443; 84550; 85014; 85018; 85025; 86038; 86334; 86335; 93005; 93010; 94640; 94760; 96361; 96365; 96366; 96372; 96375; 99285-25; J0630; J0834; J1650; J1720; J2405; J2550; J2930; J3475; J3480; J7030

== ENCOUNTER 2020-04-21 00:08 | Day surgery (SDC) | payer OTHER ==
[~2020-04-21 00:08] MED LIST changes: +HYDCOR10 PO; +OXYC5 PO; +PROM25 PO; +RENFLEXIS100 MG IV
== END 2020-04-21 11:02 | disposition home or self-care (01) ==
LOC: ATC 00:08
DX: D86.0 Sarcoidosis of lung (principal); I35.0 Nonrheumatic aortic (valve) stenosis; K21.9 Gastro-esophageal reflux disease without esophagitis; D46.9 Myelodysplastic syndrome, unspecified; Z96.641 Presence of right artificial hip joint; Z87.891 Personal history of nicotine dependence; Z79.899 Other long term (current) drug therapy; Z98.890 Other specified postprocedural states; Z86.010 Personal history of colon polyps; E11.22 Type 2 diabetes mellitus with diabetic chronic kidney disease; N18.3 Chronic kidney disease, stage 3 (moderate); E83.52 Hypercalcemia; E87.6 Hypokalemia; E83.42 Hypomagnesemia; D47.3 Essential (hemorrhagic) thrombocythemia; G40.909 Epilepsy, unspecified, not intractable, without status epilepticus
CPT/HCPCS: J1745; J7050

== ENCOUNTER 2020-07-11 00:30 | Day surgery (SDC) | payer OTHER | END 2020-07-11 11:27 | disposition home or self-care (01) | LOC: ATC 00:30 | DX: D86.89 Sarcoidosis of other sites (principal); K21.9 Gastro-esophageal reflux disease without esophagitis; I35.0 Nonrheumatic aortic (valve) stenosis; E78.5 Hyperlipidemia, unspecified; M19.90 Unspecified osteoarthritis, unspecified site; Z98.890 Other specified postprocedural states; Z96.641 Presence of right artificial hip joint; Z86.010 Personal history of colon polyps; Z87.891 Personal history of nicotine dependence; Z79.899 Other long term (current) drug therapy; E83.52 Hypercalcemia; N18.30 Chronic kidney disease, stage 3 unspecified; E87.6 Hypokalemia; E83.42 Hypomagnesemia; D47.3 Essential (hemorrhagic) thrombocythemia | CPT/HCPCS: J1745; J7050 ==

== ENCOUNTER 2020-08-22 00:05 | Day surgery (SDC) | payer OTHER | END 2020-08-22 22:42 | disposition home or self-care (01) | LOC: ATC 00:05 | DX: D86.9 Sarcoidosis, unspecified (principal); F10.20 Alcohol dependence, uncomplicated; F43.12 Post-traumatic stress disorder, chronic; Z87.891 Personal history of nicotine dependence ==

== ENCOUNTER 2020-08-27 | Day surgery (SDC) | payer OTHER | END 2020-08-27 10:22 | disposition home or self-care (01) | LOC: ATC | DX: D86.0 Sarcoidosis of lung (principal); D86.3 Sarcoidosis of skin; D86.89 Sarcoidosis of other sites; E83.52 Hypercalcemia; K21.9 Gastro-esophageal reflux disease without esophagitis; M19.90 Unspecified osteoarthritis, unspecified site; E78.5 Hyperlipidemia, unspecified; E11.9 Type 2 diabetes mellitus without complications | CPT/HCPCS: 96413; 96415; J1745; J7050 ==

== ENCOUNTER 2021-04-18 21:00 | Emergency (ER) | payer OTHER ==
[~2021-04-18] VITALS: Ht 182.9 cm; Wt 129.3 kg
[2021-04-18 21:36] LABS: BASOPHILS ABSOLUTE AUTO 0.08 K/mm3 (0.00-0.23); BASOPHILS PERCENT AUTO 0 % (0-2); EOSINOPHILS ABSOLUTE AUTO 0.06 K/mm3 (0.00-0.68); EOSINOPHILS PERCENT AUTO 0 % (0-6); Hemoglobin 13.4 g/dL (13.5-17.5); IMMATURE GRAN ABSOLUTE AUTO 0.11 K/mm3 (0.00-0.10); IMMATURE GRAN PERCENT AUTO 1 % (0-1); LYMPHOCYTES ABSOLUTE AUTO 2.19 K/mm3 (0.84-5.20); LYMPHOCYTES PERCENT AUTO 12 % (21-46); MONOCYTES ABSOLUTE AUTO 0.95 K/mm3 (0.16-1.47); MONOCYTES PERCENT AUTO 5 % (4-13); Mean Corpuscular HGB Conc 34.4 g/dL (31.5-36.5); Mean Corpuscular Volume 87 fL (80-100); Mean Platelet Volume 11.1 fL (9.1-12.4); NEUTROPHILS ABSOLUTE AUTO 14.64 K/mm3 (1.96-9.15); NEUTROPHILS PERCENT AUTO 81 % (41-73); Platelet Count 387 K/mm3 (150-400); RDW Coefficient Variation 12.6 % (11.7-14.2); RDW Standard Deviation 40.1 fL (35.1-46.3); Red Blood Cell Count 4.47 M/mm3 (4.30-5.90); White Blood Cell Count 18.03 K/mm3 (4.00-11.30)
[2021-04-18 21:48] LABS: Alanine Aminotransfer (ALT/SGP 68 U/L (12-78); Albumin/Globulin Ratio 0.9 (0.8-1.8); Alk Phos 36 U/L (50-136); Anion Gap 7 mmol/L (6-16); Aspartate Aminotrans (AST/SGOT 35 U/L (12-37); Blood Urea Nitrogen 21 mg/dL (8-24); Bun/Creatinine Ratio 18.9 (12.0-20.0); CO2, Blood 24 mmol/L (21-32); Calcium, Blood 9.9 mg/dL (8.5-10.1); Chloride, Blood 109 mmol/L (98-108); Creatinine, Blood 1.11 mg/dL (0.60-1.20); Globulin, Blood 4.7 g/dL (2.2-4.0); Glomerular Filtration Rate >60 (60-); Glucose, Blood 144 mg/dL (70-99); Potassium, Blood 3.6 mmol/L (3.5-5.5); Sodium, Blood 140 mmol/L (136-145); Total Protein, Blood 8.7 g/dL (6.4-8.2)
[2021-04-18 23:16] LABS: Source, Urine Voided
[2021-04-18 23:19] LABS: Appearance, Urine Cloudy (Clear); Bilirubin, Urine Neg (Neg); Blood, Urine 5+ (Neg); Color, Urine Amber (P-Yellow); Glucose Qualitative, Urine Neg (Neg); Ketones, Urine 3+ (Neg); Leukocyte Esterase, Urine 1+ (Neg); Nitrite, Urine Neg (Neg); Protein, Urine 3+ (Neg); Specific Gravity, Urine 1.025 (1.003-1.022); Urobilinogen, Urine NORM (Normal)
[2021-04-18 23:25] LABS: Red Blood Cells, Urine TNTC /hpf (0-2); Squamous Epithelial Cells Not Seen /hpf (Few)
[2021-04-18 23:26] LABS: Bacteria Mod /hpf
[2021-04-18 23:31] LABS: U Amphetamine Screen Not Detected; U Barbituate Screen Not Detected; U Benzodiazapine Screen Not Detected; U Buprenorphine Screen Not Detected; U Cannabinoids Screen Not Detected; U Cocaine Screen Not Detected; U Methadone Screen Not Detected; U Methamphetamine Screen Not Detected; U Opiates Screen Not Detected; U Oxycodone Screen Not Detected; U Phencyclidine Screen Not Detected; U Propoxyphene Screen Not Detected
[2021-04-19] MEDS ORDERED: Percocet 5-3251 EACH PO (00:09)
[2021-04-19] MEDS ORDERED: ONDA4ODT SL (00:09)
[2021-04-19] MEDS ORDERED: CEFD300 PO (00:27)
== END 2021-04-19 00:53 | disposition home or self-care (01) ==
LOC: ER 21:00
PROVIDERS: Emergency Medicine
DX: N13.2 Hydronephrosis with renal and ureteral calculous obstruction (principal); K21.9 Gastro-esophageal reflux disease without esophagitis; G40.909 Epilepsy, unspecified, not intractable, without status epilepticus; Z79.899 Other long term (current) drug therapy; G43.909 Migraine, unspecified, not intractable, without status migrainosus
CPT/HCPCS: 36415; 51798; 71046; 74177; 80053; 81001; 83690; 85025; 87086; 93005; 93010; 96374-59; 96375; 99284-25; A9270; J1170; J1885; J2405; J7030; Q9967

== ENCOUNTER 2022-05-11 07:58 | Emergency (ER) | payer OTHER ==
[~2022-05-11] VITALS: Ht 185.4 cm; Wt 113.4 kg
[~2022-05-11 07:58] MED LIST changes: +CEFD300 PO; +Percocet 5-3251 EACH PO
[2022-05-11] MEDS ORDERED: IBUP800 PO (09:09)
== END 2022-05-11 09:16 | disposition home or self-care (01) ==
LOC: ER 07:58
DX: M25.572 Pain in left ankle and joints of left foot (principal)
CPT/HCPCS: 73610